=== PATIENT | male | born 1970 | race African-American/Black ===

== ENCOUNTER 2020-11-10 23:15 | Observation (INO) | payer OTHER ==
[2020-11-10] MEDS ORDERED: ONDANSETRON 4 MG/2 ML VIAL IVP STA (23:44)
[2020-11-10] MEDS ORDERED: SODIUM CHLORIDE 0.9% 500 ML 500 ML IV STA (23:44)
[2020-11-10] MEDS ORDERED: SODIUM CHLORIDE 0.9% 1,000 ML IV STA (23:44)
[2020-11-10] MEDS ORDERED: MORPHINE SULFATE 4 MG/ML SYRINGE IV STA (23:44)
[2020-11-10] MEDS ORDERED: AMPICILLIN-SULBACTAM 3 GM in SODIUM CHLORIDE 0.9% 100 ML IVPB STA (23:45)
[2020-11-10] MEDS ORDERED: VANCOMYCIN IV PER PHARMACY 1 EACH MISC MISCELLANE PRN (23:45)
[2020-11-10] MEDS ORDERED: KETOROLAC 15 MG/ML 1 ML VIAL IVP STA (23:45)
--- NOTE | 2020-11-10 23:55 | ED ---
Recheck HPI - General Chief Complaint: Skin/Abscess/Foreign Body Stated Complaint: Abscess Time Seen by Provider: 11/10/20 23:33 Source: patient, RN notes reviewed, old records reviewed Mode of arrival: ambulatory Limitations: no limitations - History of Present Illness Initial Comments: This is a 50-year-old male DF for evaluation. Patient has recent strong medical history, patient was seen at an outside facility for abscess of the groin area. Patient's abscesses continue to drain and patient does think is draining from other places besides from where it was initially opened. Severe pain in the area without fever but significant swelling and edema. Pain is again increasingly severe with still drainage. MD Complaint: wound re-check (left groin abscess) -: hour(s) Returns Today for: Called Because of Abnormal Lab/Test, persistent/worsening pain related to initial visit Symptoms Since Prior Visit: worsening pain Associated Symptoms: none Treatments Prior to Arrival: dressings - Related Data Allergies Allergy/AdvReac Type Severity Reaction Status Date / Time Sulfa (Sulfonamide Allergy Rash/Hives Verified 11/10/20 23:27 Antibiotics) Review of Systems ROS Statement: Those systems with pertinent positive or pertinent negative responses have been documented in the HPI. ROS Other: All systems not noted in ROS Statement are negative. Past Medical History Additional Past Medical History / Comment(s): chrons History of Any Multi-Drug Resistant Organisms: None Reported Additional Past Surgical History / Comment(s): colon surgery Past Psychological History: No Psychological Hx Reported Smoking Status: Never smoker Past Alcohol Use History: Occasional Past Drug Use History: None Reported General Exam General appearance: alert, in no apparent distress Head exam: Present: atraumatic, normocephalic, normal inspection Eye exam: Present: normal appearance, PERRL, EOMI. Absent: scleral icterus, conjunctival injection, periorbital swelling ENT exam: Present: normal exam, mucous membranes moist Neck exam: Present: normal inspection. Absent: tenderness, meningismus, lymphadenopathy Respiratory exam: Present: normal lung sounds bilaterally. Absent: respiratory distress, wheezes, rales, rhonchi, stridor Cardiovascular Exam: Present: regular rate, normal rhythm, normal heart sounds. Absent: systolic murmur, diastolic murmur, rubs, gallop, clicks GI/Abdominal exam: Present: soft, normal bowel sounds. Absent: distended, tenderness, guarding, rebound, rigid Extremities exam: Present: normal inspection, full ROM, normal capillary refill. Absent: tenderness, pedal edema, joint swelling, calf tenderness Back exam: Present: normal inspection Neurological exam: Present: alert, oriented X3, CN II-XII intact Psychiatric exam: Present: normal affect, normal mood Skin exam: Present: warm, dry, intact, normal color. Absent: rash Course Vital Signs 11/10/20 23:19 Temperature 99.5 F Pulse Rate 102 H Respiratory 18 Rate Blood Pressure 143/76 O2 Sat by Pulse 99 Oximetry - Reevaluation(s) Reevaluation #1: 11/11/20 01:08 medical record is reviewed Reevaluation #2: 11/11/20 01:11 Patient still having severe groin pain here in the ER Reevaluation #3: 11/11/20 01:11 Wound is bandages are removed no active drainage but significant surrounding cellulitis swelling and edema - Consultations Consultation #1: Spoke with sound who will admit this patient Medical Decision Making - Medical Decision Making 50 male DF for evaluation patient has persistent left groin abscess severe swelling surrounding swelling and erythema. No history of diabetes. Patient be admitted for surgical evaluation - Lab Data Result diagrams: 11/11/20 01:05 11/11/20 00:30 Lab Results 11/11/20 11/11/20 11/11/20 Range/Units 00:30 00:30 00:30 Sodium 136 L (137-145) mmol/L Potassium 4.1 (3.5-5.1) mmol/L Chloride 100 (98-107) mmol/L Carbon Dioxide 27 (22-30) mmol/L Anion Gap 9 mmol/L BUN 12 (9-20) mg/dL Creatinine 0.84 (0.66-1.25) mg/dL Est GFR (CKD-EPI)AfAm >90 (>60 ml/min/1.73 sqM) Est GFR (CKD-EPI)NonAf >90 (>60 ml/min/1.73 sqM) Glucose 346 H (74-99) mg/dL Plasma Lactic Acid Blaine 2.9 H* (0.7-2.0) mmol/L Calcium 9.0 (8.4-10.2) mg/dL Phosphorus 2.8 (2.5-4.5) mg/dL Magnesium 1.9 (1.6-2.3) mg/dL Total Bilirubin 0.4 (0.2-1.3) mg/dL AST 28 (17-59) U/L ALT 28 (4-49) U/L Alkaline Phosphatase 101 (38-126) U/L Creatine Kinase 114 (55-170) U/L Troponin I <0.012 (0.000-0.034) ng/mL Total Protein 6.6 (6.3-8.2) g/dL Albumin 3.5 (3.5-5.0) g/dL - EKG Data -: EKG Interpreted by Me (EKG shows sinus rhythm 94 VT 150 QRS 72 QTC 427) - Radiology Data Radiology results: report reviewed (CT abdomen and pelvis is positive for significant groin abscess), image reviewed Disposition Clinical Impression: Abscess, Groin abscess, Failure of outpatient treatment Disposition: ADMITTED IP TO THIS HOSP Condition: Fair Is patient prescribed a controlled substance at d/c from ED?: No
[2020-11-11] MEDS ORDERED: VANCOMYCIN 1,500 MG in SODIUM CHLORIDE 0.9% 250 ML IVPB ONE (00:30)
[2020-11-11] MEDS ORDERED: NALOXONE 0.4 MG/ML 1 ML VIAL IV PRN (01:04)
[2020-11-11] MEDS ORDERED: ONDANSETRON 4 MG/2 ML VIAL IVP PRN (01:04)
[2020-11-11] MEDS ORDERED: MORPHINE SULFATE 4 MG/ML SYRINGE IV PRN (01:04)
[2020-11-11 01:18] LABS: Basophils % (A) 1 %; Eosinophils # (A) 0.1 k/uL (0-0.7); Eosinophils % (A) 1 %; HCT 40.5 % (39.0-53.0); HGB 13.3 gm/dL (13.0-17.5); Lymphocytes # (A) 1.6 k/uL (1.0-4.8); Lymphocytes % (A) 25 %; MCH 28.6 pg (25.0-35.0); MCHC 32.9 g/dL (31.0-37.0); MCV 87.1 fL (80.0-100.0); Mean Platelet Volume 6.7; Monocytes # (A) 0.3 k/uL (0-1.0); Monocytes % (A) 5 %; Neutrophils # (A) 4.1 k/uL (1.3-7.7); Neutrophils % (A) 65 %; Platelet Count 311 k/uL (150-450); RBC 4.65 m/uL (4.30-5.90); RDW 12.8 % (11.5-15.5); WBC 6.4 k/uL (3.8-10.6)
--- NOTE | 2020-11-11 01:22 | CT ---
EXAMINATION TYPE: CT pelvis w con DATE OF EXAM: 11/11/2020 COMPARISON: None HISTORY: groin abscess. no prior on PACS. CT DLP: 2272 mGycm Automated exposure control for dose reduction was used. CONTRAST: Performed with IV Contrast, patient injected with 100ml mL of Isovue 300. Images were obtained from the iliac crests to the proximal femurs with IV contrast. The bladder distends smoothly. There is no free fluid in the pelvis. Delayed images show normal contr ast in the urinary bladder. The ureters are not dilated. I see no pelvic mass. There is no inguinal h ernia. There is no sign of a bowel obstruction. There is 3.7 cm umbilical hernia that contains fat. There is abnormal fat stranding and fluid collection in the left groin. This appears multiloculated a nd overall measures 8 x 5 cm. There is right side scrotal hydrocele. I see no sign of hydrocele on th e left side. There is small soft tissue air bubble near the skin surface on the superior aspect of th e complex mass. The hip joints are intact. The bony pelvis is intact. There is no hip dysplasia. IMPRESSION: Complex left groin mass consistent with an abscess. Surrounding fat stranding.
[2020-11-11 01:29] LABS: ALT 28 U/L (4-49); AST 28 U/L (17-59); African American GFR (CKD) >90 (>60 ml/min/1.73 sqM); Albumin 3.5 g/dL (3.5-5.0); Alkaline Phosphatase 101 U/L (38-126); Anion Gap 9 mmol/L; Blood Urea Nitrogen 12 mg/dL (9-20); Carbon Dioxide 27 mmol/L (22-30); Chloride 100 mmol/L (98-107); Creatine Kinase 114 U/L (55-170); Glucose 346 mg/dL (74-99); Magnesium 1.9 mg/dL (1.6-2.3); Non-African American GFR(CKD) >90 (>60 ml/min/1.73 sqM); Phosphorus 2.8 mg/dL (2.5-4.5); Potassium 4.1 mmol/L (3.5-5.1); Sodium 136 mmol/L (137-145); Total Bilirubin 0.4 mg/dL (0.2-1.3); Total Protein 6.6 g/dL (6.3-8.2)
--- NOTE | 2020-11-11 03:07 | P.HPIM ---
History of Present Illness H&P Date: 11/11/20 The patient is a 50-year-old male with a PMH of Crohn's disease who presented to the emergency room with a recently diagnosed groin abscess. The patient reports that he initially noticed the roughly a week ago at which time he went [facility]. He reports that they drained the area and did some gauze packing and sent him home with antibiotics. He reports however that soon after his symp toms gradually worsened and he had worsening pain and swelling of the area. He reports that today when he went to change his dressing, he noticed a significant amount of drainage from the area which prompted him to come to the emergency room. He reports occasional chills but denied having a fever at home despite checking his temperature consistently. At time of the interview, he reports that his pain had improved to a 1 out of 10, previously a 7 out of 10 of maximal intensity. He reports that his Crohn's disease is excellently controlled and that he does not take any medications for it and has no symptoms for the past 20 years. The patient was unable to recall the name of the antibiotic that he was prescribed. She also reports a prior history of abscesses or infections. He denied chest discomfort, shortness of breath, nausea, vomiting, abdominal pain, diarrhea. Denied headaches, weakness, numbness, tingling. In the emergency room, a pelvic CT revealed a complex left groin mass consistent with an abscess. EKG revealed sinus rhythm at [address]/T-wave changes noted as reviewed by me. Laboratory evaluation was remarkable for a lactic acid of 2.9, glucose 346, W BC count 6.4, and troponin less than 0.012. Review of systems: Pertinent positives and negatives as discussed in HPI, a complete review of systems was performed and all other systems are negative. Physical examination: General: non toxic, no distress, appears at stated age, overweight Derm: Diffuse suprapubic swelling with fluctuance and a draining ulcer, warm, dry Head: atraumatic, normocephalic, symmetric Eyes: EOMI, no lid lag, anicteric sclera, pupils equal round reactive to light ENT: Nose and ears atraumatic, no thrush, no pharyngeal erythema Neck: No thyromegaly, no cervical lymphadenopathy, trachea midline, supple Mouth: no lip lesion, mucus membranes moist Cardiovascular: S1S2 reg, no murmur, positive posterior tibial pulse bilateral, no edema, capillary refill less than 2 seconds Lungs: CTA bilateral, no rhonchi, no rales , no accessory muscle use Abdominal: soft, nontender to palpation, no guarding, no appreciable organomegaly, normal bowel sounds Ext: no gross muscle atrophy, muscle strength 5 out of 5 in all 4 extremities grossly, no contractures, Neuro: CN II-XI grossly intact, light touch intact all 4 extremities, finger to nose within normal limits, Psych: Alert, oriented, appropriate affect Assessment/plan Inguinal abscess, failed outpatient treatment -Continue with Unasyn and vancomycin -Follow up blood cultures -Pain control -Surgery consult -IV fluids Lactic acidosis -Monitor for resolution -Continue with IV fluids Hyperglycemia -Check A1c -Lispro insulin sliding scale and blood glucose monitoring DVT prophylaxis -Heparin subcu The patient is admitted with an anticipated less than 2 midnight stay for evaluation of abscess CODE STATUS: Full Code Discussed with: Patient Anticipated discharge date: 11/[address]: Home A total of 40 minutes was spent on the care of this complex patient more than 50% of the time was spent in counseling and care coordination. Past Medical History Additional Past Medical History / Comment(s): chrons History of Any Multi-Drug Resistant Organisms: None Reported Additional Past Surgical History / Comment(s): colon surgery Past Psychological History: No Psychological Hx Reported Smoking Status: Never smoker Past Alcohol Use History: Occasional Past Drug Use History: None Reported Medications and Allergies Allergies Allergy/AdvReac Type Severity Reaction Status Date / Time Sulfa (Sulfonamide Allergy Rash/Hives Verified 11/10/20 23:27 Antibiotics) Physical Exam Vitals: Vital Signs Temp Pulse Resp BP Pulse Ox 11/10/20 23:19 99.5 F 102 H 18 143/76 99 Intake and Output 11/10/20 11/10/20 11/11/20 14:59 22:59 06:59 Other: Weight 95.708 kg Results CBC & Chem 7: 11/11/20 01:05 11/11/20 00:30 Labs: Abnormal Lab Results - Last 24 Hours (Table) 11/11/20 11/11/20 Range/Units 00:30 00:30 Sodium 136 L (137-145) mmol/L Glucose 346 H (74-99) mg/dL Plasma Lactic Acid Blaine 2.9 H* (0.7-2.0) mmol/L
[2020-11-11 03:33] LABS: INR 1.1 (<1.2); Partial Thromboplastin Time 23.5 sec (22.0-30.0); Prothrombin Time 11.1 sec (9.0-12.0)
[2020-11-11] MEDS: HEPARIN SODIUM,PORCINE/PF 5,000 UNIT/0.5 ML SYRINGE SQ SCH ×2 (08:08→18:03)
[2020-11-11] MEDS: AMPICILLIN-SULBACTAM 3 GM in SODIUM CHLORIDE 0.9% 100 ML IVPB SCH ×2 (08:09→18:04)
[2020-11-11] MEDS: INSULIN ASPART (NovoLOG) 100 UNIT/ML VIAL SQ SCH ×4 (08:09→21:10)
[2020-11-11] MEDS: PANTOPRAZOLE 40 MG/10 ML VIAL IV SCH (08:09)
[2020-11-11] MEDS ORDERED: MORPHINE SULFATE 2 MG/ML SYRINGE IV PRN (08:19)
[2020-11-11 08:21] LABS: Glucose,Whole Blood 246 mg/dL (75-99)
[2020-11-11] MEDS ORDERED: SODIUM CHLORIDE 0.9% 1,000 ML IV SCH (08:30)
[2020-11-11] MEDS ORDERED: VANCOMYCIN 1,250 MG in SODIUM CHLORIDE 0.9% 250 ML IVPB SCH (10:00)
[2020-11-11 12:31] LABS: Glucose,Whole Blood 202 mg/dL (75-99)
--- NOTE | 2020-11-11 12:49 | P.HPADDEND ---
H&P Addendum H&P Addendum Date: 11/11/20 Patient seen and evaluated. Patient has complicated left lower abdominal abscess. Despite drainage at outside institution, patient still has persistent pain. Open surgical drainage described. Patient was agreeable with benefits and risks.
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
[2020-11-11] MEDS ORDERED: IV FLUID CONTINUATION 900 ML IV ONE (13:00)
[2020-11-11 13:18] LABS: Glucose,Whole Blood 234 mg/dL (75-99)
[2020-11-11] MEDS ORDERED: INSULIN ASPART (NovoLOG) 100 UNIT/ML VIAL SQ ONE (13:22)
[2020-11-11] MEDS ORDERED: fentaNYL (PF) 50 MCG/ML 2 ML AMP ONE (14:05)
[2020-11-11] MEDS ORDERED: LIDOCAINE 1% INJ 10MG/ML (20 ML MDV) ONE (14:05)
[2020-11-11] MEDS ORDERED: MIDAZOLAM 2 MG/2 ML VIAL ONE (14:05)
[2020-11-11] MEDS ORDERED: SUCCINYLCHOLINE CHLORIDE 100 MG/5 ML SYR IV ONE (14:05)
[2020-11-11] MEDS ORDERED: PROPOFOL 10 MG/ML 20 ML VIAL IV ONE (14:05)
[2020-11-11] MEDS ORDERED: BUPIVACAINE (PF) 0.25% 30 ML VIAL SQ ONE (14:25)
--- NOTE | 2020-11-11 15:33 | P.OP ---
Date of Procedure: 11/11/20 Description of Procedure: SURGEON: MORENITA PERERA MD FLASH RANGING CREWMEMBER: NONE. PREOPERATIVE DIAGNOSES: 1. Complex abdominal, left groin abscess 2. Failed outpatient management left groin abscess 3. History of Crohn's disease 5. Hyperglycemia, controlled 6. Abnormal computed tomography scan 8 x 5 cm left groin abscess 7. Cellulitis, left groin abscess POSTOPERATIVE DIAGNOSES: 1. Complex abdominal, left groin abscess, deep subcutaneous 2. Failed outpatient management left groin abscess 3. History of Crohn's disease 5. Hyperglycemia, controlled 6. Abnormal computed tomography scan 8 x 5 cm left groin abscess OPERATION: 1. Excision of benign lesion into subcutaneous tissue 7 x 2 cm left groin. 2. Open drainage of complex deep subcutaneous left groin abscess/abdominal wall abscess, 8 x 5 cm 2. Mechanical debridement using 3 L normal saline of pulse lavage of complex left groin abscess, 8 x 5 cm 3. Placement of [place] drain ANESTHESIA: Gen. with local anesthetic ESTIMATED BLOOD LOSS: 20 mL. SPECIMENS REMOVED: 1. Aerobic, anaerobic culture of the complex left groin abscess 2. Benign skin lesion left groin COMPLICATIONS: None. Condition: stable Disposition: floor Operative Findings: 1. Severe induration and erythema of the pubis, left groin. 2. Pulse lavage 3 L normal saline of abdominal wall pocket performed for mechanical debridement 3. Drain placed in evacuated abscess pocket INDICATIONS: The patient patient is a 50-year-old male who presents with lower abdominal suprapubic swelling and severe tenderness along the left groin. CT demonstrated complex left groin abscess. The patient was started on vancomycin. Given the complexity and size the abscess, open surgical intervention was described. Benefits and risks including bleeding, infection, wound dehiscence, cosmetic deformity were reviewed. Informed consent was obtained. DESCRIPTION OF PROCEDURE: Patient was brought into the operating room and laid in supine position. After general anesthetic, the abdomen and thigh were prepped and draped in a standard sterile fashion. Attention was then brought to the complex left groin cellulitis with abscess. Using a #15 blade an elliptical 7 cm x 2 cm transverse incision, benign skin lesion was excised into the subcutaneous tissue along the left groin. The wound was probed with disruption of loculations. Aerobic and anaerobic cultures of deep tissue cultures were obtained. The pocket was flushed using dilute hydrogen peroxide. A pulse lavage of 3 L normal saline for mechanical debridement to the fascia, the deep subcutaneous pocket was performed. A quarter-inch Jovita drain was cut to size and placed in the depth of the wound for drainage. A drainage stitch 2-0 nylon was placed. The open wound was loosely closed using stainless skin nydia. Local anesthetic was placed. Additional dressings: 4 x 4 fluffs, ABDs, 6 inch Medipore tape was placed after the skin was cleansed. The patient was awoken from anesthesia. All sponge and instrument counts were verified correct by traffic survey technician. The patient was transferred to postanesthesia care unit in stable condition.
[2020-11-11 15:52] LABS: Glucose,Whole Blood 169 mg/dL (75-99)
[2020-11-11 16:28] LABS: Hemoglobin A1C 9.4 % (4.0-6.0)
[2020-11-11 17:26] LABS: Glucose,Whole Blood 169 mg/dL (75-99)
[2020-11-11 20:59] LABS: Glucose,Whole Blood 224 mg/dL (75-99)
[2020-11-12] MEDS: HEPARIN SODIUM,PORCINE/PF 5,000 UNIT/0.5 ML SYRINGE SQ SCH ×3 (00:38→17:07)
[2020-11-12] MEDS: AMPICILLIN-SULBACTAM 3 GM in SODIUM CHLORIDE 0.9% 100 ML IVPB SCH ×3 (00:39→17:06)
[2020-11-12 06:59] LABS: Glucose,Whole Blood 140 mg/dL (75-99)
[2020-11-12] MEDS: INSULIN ASPART (NovoLOG) 100 UNIT/ML VIAL SQ SCH ×4 (08:00→20:37)
[2020-11-12] MEDS ORDERED: VANCOMYCIN TROUGH DUE 1 EACH MISC MISCELLANE ONE (09:00)
[2020-11-12 09:05] LABS: Basophils % (A) 0 %; Eosinophils # (A) 0.2 k/uL (0-0.7); Eosinophils % (A) 5 %; HCT 40.2 % (39.0-53.0); HGB 13.8 gm/dL (13.0-17.5); Lymphocytes # (A) 1.8 k/uL (1.0-4.8); Lymphocytes % (A) 34 %; MCH 29.8 pg (25.0-35.0); MCHC 34.4 g/dL (31.0-37.0); MCV 86.6 fL (80.0-100.0); Mean Platelet Volume 6.5; Monocytes # (A) 0.3 k/uL (0-1.0); Monocytes % (A) 6 %; Neutrophils # (A) 2.9 k/uL (1.3-7.7); Neutrophils % (A) 53 %; Platelet Count 349 k/uL (150-450); RBC 4.63 m/uL (4.30-5.90); RDW 12.7 % (11.5-15.5); WBC 5.4 k/uL (3.8-10.6)
[2020-11-12 09:07] LABS: ALT 27 U/L (4-49); AST 35 U/L (17-59); African American GFR (CKD) >90 (>60 ml/min/1.73 sqM); Albumin 3.1 g/dL (3.5-5.0); Alkaline Phosphatase 79 U/L (38-126); Anion Gap 7 mmol/L; Blood Urea Nitrogen 8 mg/dL (9-20); Calcium 8.5 mg/dL (8.4-10.2); Carbon Dioxide 25 mmol/L (22-30); Chloride 106 mmol/L (98-107); Globulin 3.2 g/dL; Glucose 247 mg/dL (74-99); Non-African American GFR(CKD) >90 (>60 ml/min/1.73 sqM); Phosphorus 2.5 mg/dL (2.5-4.5); Sodium 138 mmol/L (137-145); Total Bilirubin 0.6 mg/dL (0.2-1.3); Total Protein 6.3 g/dL (6.3-8.2)
[2020-11-12] MEDS: PANTOPRAZOLE 40 MG/10 ML VIAL IV SCH (09:22)
[2020-11-12 10:49] VITALS: BMI 29.4
[2020-11-12] MEDS: VANCOMYCIN 1,250 MG in SODIUM CHLORIDE 0.9% 250 ML IVPB SCH ×2 (11:07→20:26)
[2020-11-12] MEDS ORDERED: ACETAMINOPHEN TAB 500 MG TAB PO PRN (11:16)
--- NOTE | 2020-11-12 11:22 | P.PN ---
Subjective Progress Note Date: 11/12/20 CHIEF COMPLAINT: Left groin abscess HISTORY OF PRESENT ILLNESS: Patient is status post Excision of benign lesion into subcutaneous tissue 7 x 2 cm left groin, open drainage of complex deep subcutaneous left groin abscess/abdominal wall abscess, 8 x 5 cm, Mechanical debridement using 3 L normal saline of pulse lavage of complex left groin abscess, 8 x 5 cm and Placement of [place] drain. Patient lying in bed comfortably. He reports that his pain is controlled. He denies any nausea or vomiting. He tolerated regular diet. He is having flatus. Denies any bowel movement. Deep cultures from surgery are pending. Infectious disease consult for antibiotic recommendations. Patient is afebrile. His A1c is elevated at 9.4. WBC is 5.4 hemoglobin 13.8 creatinine 0.67 glucose 246 PHYSICAL EXAM: VITAL SIGNS: Reviewed GENERAL: Well-developed in no acute distress. HEENT: No sclera icterus. Extraocular movements grossly intact. Moist buccal mucosa. Head is atraumatic, normocephalic. Hears conversational speech. No nasal drainage. NECK: Supple without lymphadenopathy. CHEST: Non-labored respirations and equal bilateral excursions. CARDIOVASCULAR: Palpable 2+ radial pulses. ABDOMEN: Soft. Nondistended. Incisional dressing clean dry and intact MUSCULOSKELETAL: No clubbing or cyanosis. NEUROLOGIC: No focal or lateralizing signs. Cranial nerves II through XII grossly intact. PSYCH: Appropriate affect. Alert and oriented to person, place and time. SKIN: Well perfused. Good skin turgor. ASSESSMENT: 1. Complex abdominal, left groin abscess, deep subcutaneous 2. Failed outpatient management left groin abscess 3. History of Crohn's disease 5. New diabetic with Hyperglycemia 6. Abnormal computed tomography scan 8 x 5 cm left groin abscess PLAN: -Consult infectious disease for antibiotic recommendations -Continue current IV antibiotics -Medical service for diabetes management -Encourage patient to ambulate -Add Tylenol as needed for pain Physician Dairy Technician note has been reviewed by physician. Signing provider agrees with the documented findings, assessment, and plan of care. Objective - Vital Signs Vital signs: Vital Signs Temp 97.7 F 11/12/20 07:00 Pulse 72 11/12/20 07:00 Resp 17 11/12/20 07:00 BP 141/90 11/12/20 07:00 Pulse Ox 99 11/12/20 07:00 Intake & Output 11/11/20 11/12/20 11/12/20 18:59 06:59 18:59 Intake Total 1000 118 Output Total 820 1700 Balance 180 -1700 118 Weight 95.708 kg Intake: IV 800 Oral 200 118 Output: Urine 800 1700 Estimated Blood Loss 20 Other: Voiding Method Urinal Urinal - Labs CBC & Chem 7: 11/12/20 08:32 11/12/20 08:32 Labs: Abnormal Lab Results - Last 24 Hours (Table) 11/11/20 11/11/20 11/11/20 Range/Units 03:43 12:30 13:15 BUN (9-20) mg/dL Glucose (74-99) mg/dL POC Glucose (mg/dL) 202 H 234 H (75-99) mg/dL Hemoglobin A1c 9.4 H (4.0-6.0) % Albumin (3.5-5.0) g/dL 11/11/20 11/11/20 11/11/20 Range/Units 15:50 17:24 20:58 BUN (9-20) mg/dL Glucose (74-99) mg/dL POC Glucose (mg/dL) 169 H 169 H 224 H (75-99) mg/dL Hemoglobin A1c (4.0-6.0) % Albumin (3.5-5.0) g/dL 11/12/20 11/12/20 Range/Units 06:57 08:32 BUN 8 L (9-20) mg/dL Glucose 247 H (74-99) mg/dL POC Glucose (mg/dL) 140 H (75-99) mg/dL Hemoglobin A1c (4.0-6.0) % Albumin 3.1 L (3.5-5.0) g/dL Microbiology - Last 24 Hours (Table) 11/11/20 14:40 Gram Stain - Preliminary Groin Wound Culture - Preliminary 11/11/20 14:40 Gram Stain - Preliminary Groin Wound Culture - Preliminary 11/11/20 00:45 Blood Culture - Preliminary Blood No Growth after 24 hours 11/11/20 00:30 Blood Culture - Preliminary Blood No Growth after 24 hours 11/11/20 14:40 Anaerobic Culture - Preliminary Groin 11/11/20 14:40 Anaerobic Culture - Preliminary Groin
[2020-11-12 11:49] LABS: Glucose,Whole Blood 219 mg/dL (75-99)
[2020-11-12 16:55] LABS: Glucose,Whole Blood 185 mg/dL (75-99)
--- NOTE | 2020-11-12 16:56 | P.PN ---
Subjective Progress Note Date: 11/12/20 Patient is doing well today. No acute events overnight. Objective - Vital Signs Vital signs: Vital Signs Temp 97.8 F 11/12/20 14:27 Pulse 88 11/12/20 14:27 Resp 16 11/12/20 14:27 BP 141/91 11/12/20 14:27 Pulse Ox 97 11/12/20 14:27 Intake & Output 11/11/20 11/12/20 11/12/20 18:59 06:59 18:59 Intake Total 1000 354 Output Total 820 1700 1375 Balance 180 -1700 -1021 Weight 95.708 kg Intake: IV 800 Oral 200 354 Output: Urine 800 1700 1375 Estimated Blood Loss 20 Other: Voiding Method Urinal Urinal Toilet - Exam General: The patient is awake and alert, in no distress Eye: there is normal conjunctiva bilaterally. Neck: The neck is supple, there is no JVD. Cardiovascular: Normal S1-S2, no S3-S4, no murmurs. Respiratory: Lungs clear to auscultation bilaterally Gastrointestinal: Abdomen is soft, nontender Musculoskeletal: There is no pedal edema. Neurological:. Speech is normal. Skin: Skin is warm and dry - Labs CBC & Chem 7: 11/12/20 08:32 11/12/20 08:32 Labs: Abnormal Lab Results - Last 24 Hours (Table) 11/11/20 11/11/20 11/12/20 Range/Units 17:24 20:58 06:57 BUN (9-20) mg/dL Glucose (74-99) mg/dL POC Glucose (mg/dL) 169 H 224 H 140 H (75-99) mg/dL Albumin (3.5-5.0) g/dL 11/12/20 11/12/20 Range/Units 08:32 11:47 BUN 8 L (9-20) mg/dL Glucose 247 H (74-99) mg/dL POC Glucose (mg/dL) 219 H (75-99) mg/dL Albumin 3.1 L (3.5-5.0) g/dL Microbiology - Last 24 Hours (Table) 11/11/20 14:40 Gram Stain - Preliminary Groin Wound Culture - Preliminary 11/11/20 14:40 Gram Stain - Preliminary Groin Wound Culture - Preliminary 11/11/20 00:45 Blood Culture - Preliminary Blood No Growth after 24 hours 11/11/20 00:30 Blood Culture - Preliminary Blood No Growth after 24 hours 11/11/20 14:40 Anaerobic Culture - Preliminary Groin 11/11/20 14:40 Anaerobic Culture - Preliminary Groin Assessment and Plan Assessment: This is a 50-year-old male with past medical history noted below who presented to the emergency room with worsening swelling and discomfort in the groin area. Patient was evaluated in the ER and admitted to the hospital for further management of his medical problems noted below 1. Complex abdominal/left groin abscess, failed outpatient management status post debridement and placement of [place] drain. Currently on broad-spectrum antibiotic with vancomycin and Unasyn. Awaiting culture results. 2. Type 2 diabetes, new onset. Not well controlled. A1c 9.4. Insulin sliding scale insulin. I would transition to oral medications upon discharge 3. History of Crohn's disease Today, I reviewed his medication list and lab work results. Continue broad spectrum antibiotic. Repeat lab work in the morning. Anticipate discharge home tomorrow.
[2020-11-12] MEDS: INSULIN DETEMIR (LEVEMIR) 100 UNIT/ML SYR SQ SCH (17:49)
[2020-11-12 20:19] LABS: Glucose,Whole Blood 234 mg/dL (75-99)
--- NOTE | 2020-11-12 22:44 | P.CONS ---
History of Present Illness - Reason for Consult Consult date: 11/12/20 Left groin abscess Requesting physician: Nicolle Yan - Chief Complaint Left groin pain swelling x 2 days - History of Present Illness Patient is a 50-year-old -[place] male presenting to the ER 2 days ago for evaluation of painful swelling to the left groin area apparently the patient did develop an abscess to the groin area which was drained at [facility] and the patient subsequent discharged home with antibiotic however the patient continued to have increasing pain and swelling to the groin area and any change in dressing on the day of presentation to hospital patient noted significant amount of purulent drainage which concerned him and he presented to the hospital patient did have some chills and the patient had did have a low- grade fever on presentation to the hospital patient did have a normal white count kidney function and liver enzymes were normal blood cultures obtained currently pending patient did have a CT of the pelvis did shows complex left groin mass consistent with an abscess with surrounding fat stranding patient was taken to the OR yesterday afternoon and the patient is s/p drainage of the left groin abscess culture has been obtained which are currently pending patient is currently being treated with Unasyn and vancomycin infectious disease was consulted for further management of antibiotic therapy. Review of Systems Positive point has been mentioned in the HPI rest of the systems are negative Past Medical History Additional Past Medical History / Comment(s): chrons History of Any Multi-Drug Resistant Organisms: None Reported Additional Past Surgical History / Comment(s): colon surgery Past Psychological History: No Psychological Hx Reported Smoking Status: Never smoker Past Alcohol Use History: Occasional Past Drug Use History: None Reported Medications and Allergies Home Medications Medication Instructions Recorded Confirmed Type Acetaminophen Tab [Tylenol Tab] 1,000 mg PO Q6HR PRN 11/11/20 11/11/20 History Amoxic-Pot Clav 875-125Mg 1 tab PO Q12HR 11/11/20 11/11/20 History [Augmentin 875-125] Allergies Allergy/AdvReac Type Severity Reaction Status Date / Time Sulfa (Sulfonamide Allergy Rash/Hives Verified 11/11/20 13:05 Antibiotics) Physical Exam Vitals: Vital Signs Temp Pulse Pulse Resp BP Pulse Ox 11/12/20 07:00 97.7 F 72 17 141/90 99 11/12/20 01:45 97.7 F 80 16 141/86 96 11/11/20 19:23 97.8 F 88 18 138/86 97 11/11/20 16:00 78 16 110/70 98 11/11/20 15:45 77 16 109/68 98 11/11/20 15:30 80 16 112/67 99 11/11/20 15:15 84 16 107/66 98 11/11/20 14:59 98.1 F 87 16 116/74 97 11/11/20 13:01 99.0 F 85 18 133/84 99 Intake and Output 11/11/20 11/12/20 11/12/20 22:59 06:59 14:59 Intake Total 300 118 Output Total 1999 500 Balance -1700 -500 118 Intake: IV 100 Oral 200 118 Output: Urine 1999 500 Other: Voiding Method Urinal Toilet Urinal Weight 95.708 kg GENERAL DESCRIPTION: Middle-aged male lying in bed, no distress. No tachypnea or accessory muscle of respiration use. HEENT: Shows Pallor , no scleral icterus. Oral mucous membrane is dry. No phar yngeal erythema or thrush NECK: Trachea central, no thyromegaly. LUNGS: Unlabored breathing. Clear to auscultation anteriorly. No wheeze or crackle. HEART: S1, S2, regular rate and rhythm. No loud murmur ABDOMEN: Soft, no tenderness , guarding or rigidity, no organomegaly Left groin is currently dressed no drainage of the dressing EXTREMITIES: No edema of feet. SKIN: No rash, no masses palpable. NEUROLOGICAL: The patient is awake, alert, oriented x3, mood and affect normal. Results CBC & Chem 7: 11/12/20 08:32 11/12/20 08:32 Labs: Abnormal Lab Results - Last 24 Hours (Table) 11/11/20 11/11/20 11/11/20 Range/Units 03:43 12:30 13:15 BUN (9-20) mg/dL Glucose (74-99) mg/dL POC Glucose (mg/dL) 202 H 234 H (75-99) mg/dL Hemoglobin A1c 9.4 H (4.0-6.0) % Albumin (3.5-5.0) g/dL 11/11/20 11/11/20 11/11/20 Range/Units 15:50 17:24 20:58 BUN (9-20) mg/dL Glucose (74-99) mg/dL POC Glucose (mg/dL) 169 H 169 H 224 H (75-99) mg/dL Hemoglobin A1c (4.0-6.0) % Albumin (3.5-5.0) g/dL 11/12/20 11/12/20 11/12/20 Range/Units 06:57 08:32 11:47 BUN 8 L (9-20) mg/dL Glucose 247 H (74-99) mg/dL POC Glucose (mg/dL) 140 H 219 H (75-99) mg/dL Hemoglobin A1c (4.0-6.0) % Albumin 3.1 L (3.5-5.0) g/dL Microbiology - Last 24 Hours (Table) 11/11/20 14:40 Gram Stain - Preliminary Groin Wound Culture - Preliminary 11/11/20 14:40 Gram Stain - Preliminary Groin Wound Culture - Preliminary 11/11/20 00:45 Blood Culture - Preliminary Blood No Growth after 24 hours 11/11/20 00:30 Blood Culture - Preliminary Blood No Growth after 24 hours 11/11/20 14:40 Anaerobic Culture - Preliminary Groin 11/11/20 14:40 Anaerobic Culture - Preliminary Groin Assessment and Plan Assessment: patient with left groin abscess in this patient who is status post surgical drainage in this patient has been in her the hospital concerning for possible resistant gram-positive as well as gram-negative pathogen (1) Groin abscess Current Visit: Yes Status: Acute Code(s): L02.214 - CUTANEOUS ABSCESS OF GROIN SNOMED Code(s): 19942190 Plan: 1-vancomycin pharmacy to dose her with a target trough of 15 while watching her kidney function and V[place] trough closely. 2-Unasyn 3 g every 6 hours We will follow on clinical condition and cultures to further adjust medication if needed Thank you for this consultation we will follow the patient along with you Time with Patient: Greater than 30
[2020-11-13] MEDS: AMPICILLIN-SULBACTAM 3 GM in SODIUM CHLORIDE 0.9% 100 ML IVPB SCH ×2 (01:00→08:07)
[2020-11-13] MEDS: VANCOMYCIN 1,250 MG in SODIUM CHLORIDE 0.9% 250 ML IVPB SCH ×2 (03:00→10:30)
[2020-11-13 06:58] VITALS: BP 158/99; PULSE 74; RESP 20; TEMP 97.7
--- NOTE | 2020-11-13 06:59 | P.PN ---
Progress Note - Text Progress Note Date: 11/12/20 Patient reports complicated surgical with Crohn's disease and not on any maintenance medication or has management with community development worker. No pain along the left groin. He also reports right inguinal hydrocele and symptomatic. Consultation made per patient request.
[2020-11-13 07:02] LABS: Glucose,Whole Blood 133 mg/dL (75-99)
[2020-11-13] MEDS: HEPARIN SODIUM,PORCINE/PF 5,000 UNIT/0.5 ML SYRINGE SQ SCH ×2 (08:07)
[2020-11-13] MEDS: INSULIN ASPART (NovoLOG) 100 UNIT/ML VIAL SQ SCH ×2 (08:07→13:03)
[2020-11-13] MEDS: PANTOPRAZOLE 40 MG/10 ML VIAL IV SCH (08:07)
[2020-11-13] MEDS: INSULIN DETEMIR (LEVEMIR) 100 UNIT/ML SYR SQ SCH (08:07)
--- NOTE | 2020-11-13 09:05 | P.GSCN ---
History of Present Illness Consult date: 11/13/20 History of present illness: Pleasant 50-year-old gentleman in the hospital with a left groin abscess incompletely treated at an outside institution. He has had surgery to correct it here. During the evaluation he was found to have a fluid collection in his right hemiscrotum and for this reason we were consult. Symptomatically the patient is not having any symptoms. He is noticed this fluid collection for about a year. It does not seem to be bothering him. He has not had any testicular trauma or urine infections. Her seen a urinary tract DrAfsaneh for this before Review of Systems All systems: negative - Constitutional Denies fever, Denies weight loss - EENT Eyes: denies blurred vision Ears, nose, mouth and throat: Denies dysphagia - Cardiovascular Denies chest pain, Denies shortness of breath - Respiratory Denies cough, Denies 7 - Gastrointestinal Reports as per HPI - Genitourinary Denies dysuria, Denies hematuria - Integumentary Denies rash, Denies unusual bruising - Neurological Denies headaches, Denies syncope - Hematologic/Lymphatic Denies easy bleeding, Denies easy bruising Past Medical History Additional Past Medical History / Comment(s): chrons History of Any Multi-Drug Resistant Organisms: None Reported Additional Past Surgical History / Comment(s): colon surgery Past Psychological History: No Psychological Hx Reported Smoking Status: Never smoker Past Alcohol Use History: Occasional Past Drug Use History: None Reported Medications and Allergies Home Medications Medication Instructions Recorded Confirmed Type Acetaminophen Tab [Tylenol Tab] 1,000 mg PO Q6HR PRN 11/11/20 11/11/20 History Amoxic-Pot Clav 875-125Mg 1 tab PO Q12HR 11/11/20 11/11/20 History [Augmentin 875-125] Allergies Allergy/AdvReac Type Severity Reaction Status Date / Time Sulfa (Sulfonamide Allergy Rash/Hives Verified 11/11/20 13:05 Antibiotics) Surgical - Exam Vital Signs Temp Pulse Resp BP Pulse Ox 99.5 F 102 H 18 143/76 99 11/10/20 23:19 11/10/20 23:19 11/10/20 23:19 11/10/20 23:19 11/10/20 23:19 - General well developed, well nourished, no distress - Eyes PERRL - ENT no hearing loss - Neck trachea midline - Respiratory normal expansion, normal respiratory effort - Cardiovascular Rhythm: regular - Abdomen Abdomen: soft, non tender - Genitourinary Left groin dressing, right fluid collection anterior scrotum consistent with hydrocele or spermatocele. - Neurologic normal coordination - Musculoskeletal normal posture - Psychiatric oriented to time, oriented to person, oriented to place, speech is normal, memory intact Results - Labs 11/12/20 08:32 11/12/20 08:32 Abnormal Lab Results - Last 24 Hours (Table) 11/12/20 11/12/20 11/12/20 Range/Units 08:32 11:47 16:54 BUN 8 L (9-20) mg/dL Glucose 247 H (74-99) mg/dL POC Glucose (mg/dL) 219 H 185 H (75-99) mg/dL Albumin 3.1 L (3.5-5.0) g/dL 11/12/20 11/13/20 Range/Units 20:16 06:46 BUN (9-20) mg/dL Glucose (74-99) mg/dL POC Glucose (mg/dL) 234 H 133 H (75-99) mg/dL Albumin (3.5-5.0) g/dL Microbiology - Last 24 Hours (Table) 11/11/20 00:45 Blood Culture - Preliminary Blood No Growth after 48 hours 11/11/20 00:30 Blood Culture - Preliminary Blood No Growth after 48 hours 11/11/20 14:40 Gram Stain - Preliminary Groin Wound Culture - Preliminary 11/11/20 14:40 Gram Stain - Preliminary Groin Wound Culture - Preliminary Diabetes panel 11/12/20 Range/Units 08:32 Sodium 138 (137-145) mmol/L Potassium 4.0 (3.5-5.1) mmol/L Chloride 106 (98-107) mmol/L Carbon Dioxide 25 (22-30) mmol/L BUN 8 L (9-20) mg/dL Creatinine 0.67 (0.66-1.25) mg/dL Glucose 247 H (74-99) mg/dL Calcium 8.5 (8.4-10.2) mg/dL AST 35 (17-59) U/L ALT 27 (4-49) U/L Alkaline Phosphatase 79 (38-126) U/L Total Protein 6.3 (6.3-8.2) g/dL Albumin 3.1 L (3.5-5.0) g/dL Calcium panel 11/12/20 Range/Units 08:32 Calcium 8.5 (8.4-10.2) mg/dL Phosphorus 2.5 (2.5-4.5) mg/dL Albumin 3.1 L (3.5-5.0) g/dL Pituitary panel 11/12/20 Range/Units 08:32 Sodium 138 (137-145) mmol/L Potassium 4.0 (3.5-5.1) mmol/L Chloride 106 (98-107) mmol/L Carbon Dioxide 25 (22-30) mmol/L BUN 8 L (9-20) mg/dL Creatinine 0.67 (0.66-1.25) mg/dL Glucose 247 H (74-99) mg/dL Calcium 8.5 (8.4-10.2) mg/dL Adrenal panel 11/12/20 Range/Units 08:32 Sodium 138 (137-145) mmol/L Potassium 4.0 (3.5-5.1) mmol/L Chloride 106 (98-107) mmol/L Carbon Dioxide 25 (22-30) mmol/L BUN 8 L (9-20) mg/dL Creatinine 0.67 (0.66-1.25) mg/dL Glucose 247 H (74-99) mg/dL Calcium 8.5 (8.4-10.2) mg/dL Total Bilirubin 0.6 (0.2-1.3) mg/dL AST 35 (17-59) U/L ALT 27 (4-49) U/L Alkaline Phosphatase 79 (38-126) U/L Total Protein 6.3 (6.3-8.2) g/dL Albumin 3.1 L (3.5-5.0) g/dL - Imaging CT scan - pelvis: report reviewed, image reviewed Assessment and Plan Assessment: Impression: Right hydrocele/spermatocele. Recommendations: Surgical treatment of this is elective. This is been discussed at length with the patient to. He'll let me know if he wishes to have anything done after recuperates from the present illness.
[2020-11-13 11:52] LABS: Glucose,Whole Blood 180 mg/dL (75-99)
--- NOTE | 2020-11-13 13:14 | P.PN ---
Subjective Progress Note Date: 11/13/20 CHIEF COMPLAINT: Left groin abscess HISTORY OF PRESENT ILLNESS: Patient is status post Excision of benign lesion into subcutaneous tissue 7 x 2 cm left groin, open drainage of complex deep subcutaneous left groin abscess/abdominal wall abscess, 8 x 5 cm, Mechanical debridement using 3 L normal saline of pulse lavage of complex left groin abscess, 8 x 5 cm and Placement of [place] drain. Patient lying in bed comfortably. He reports that his pain is controlled. He denies any nausea or vomiting. He tolerated regular diet. He is having flatus. Patient is afebrile. His A1c is elevated at 9.4. Blood sugar 180 culture results showing presumptive MRSA PHYSICAL EXAM: VITAL SIGNS: Reviewed GENERAL: Well-developed in no acute distress. HEENT: No sclera icterus. Extraocular movements grossly intact. Moist buccal mucosa. Head is atraumatic, normocephalic. Hears conversational speech. No nasal drainage. NECK: Supple without lymphadenopathy. CHEST: Non-labored respirations and equal bilateral excursions. CARDIOVASCULAR: Palpable 2+ radial pulses. ABDOMEN: Soft. Nondistended. Incisional dressing clean dry and intact MUSCULOSKELETAL: No clubbing or cyanosis. NEUROLOGIC: No focal or lateralizing signs. Cranial nerves II through XII grossly intact. PSYCH: Appropriate affect. Alert and oriented to person, place and time. SKIN: Well perfused. Good skin turgor. ASSESSMENT: 1. Complex abdominal, left groin abscess, deep subcutaneous 2. Failed outpatient management left groin abscess 3. History of Crohn's disease 5. New diabetic with Hyperglycemia 6. Abnormal computed tomography scan 8 x 5 cm left groin abscess PLAN: -Patient is stable from surgical standpoint for discharge. -Discharge antibiotics per ID -Patient can shower recommend covering his incision with Saran wrap for showers Physician Senior Design Engineering Specialist note has been reviewed by physician. Signing provider agrees with the documented findings, assessment, and plan of care. Objective - Vital Signs Vital signs: Vital Signs Temp 97.7 F 11/13/20 06:43 Pulse 74 11/13/20 06:43 Resp 20 11/13/20 08:54 BP 158/99 11/13/20 06:43 Pulse Ox 100 11/13/20 06:43 Intake & Output 11/12/20 11/13/20 11/13/20 18:59 06:59 18:59 Intake Total 354 1400 480 Output Total 1375 1700 400 Balance -1021 -300 80 Weight 95.708 kg Intake: Intake, IV Titration 600 Amount Ampicillin-Sulbactam 3 gm 100 In Sodium Chloride 0.9% 100 ml @ 200 mls/hr IVPB Q8H [facility] Rx#:[id number] Vancomycin 1,250 mg In 500 Sodium Chloride 0.9% 250 ml @ 125 mls/hr IVPB Q8HR @0200,1000,1800 [facility] Rx#: [id number] Oral 354 800 480 Output: Urine 1375 1700 400 Other: Voiding Method Toilet # Voids 1 # Bowel Movements 0 - Labs CBC & Chem 7: 11/12/20 08:32 11/12/20 08:32 Labs: Abnormal Lab Results - Last 24 Hours (Table) 11/12/20 11/12/20 11/13/20 Range/Units 16:54 20:16 06:46 POC Glucose (mg/dL) 185 H 234 H 133 H (75-99) mg/dL 11/13/20 Range/Units 11:48 POC Glucose (mg/dL) 180 H (75-99) mg/dL Microbiology - Last 24 Hours (Table) 11/11/20 14:40 Anaerobic Culture - Preliminary Groin 11/11/20 14:40 Anaerobic Culture - Preliminary Groin 11/11/20 14:40 Gram Stain - Preliminary Groin Wound Culture - Preliminary Presumptive MRSA 11/11/20 14:40 Gram Stain - Preliminary Groin Wound Culture - Preliminary Presumptive MRSA 11/11/20 00:45 Blood Culture - Preliminary Blood No Growth after 48 hours 11/11/20 00:30 Blood Culture - Preliminary Blood No Growth after 48 hours
--- NOTE | 2020-11-13 13:47 | P.DS ---
Providers Date of admission: 11/11/20 01:04 Expected date of discharge: 11/13/20 Attending physician: Juan Dowling MD Consults: 11/11/20 01:04 Consult Physician Routine Consulting Provider: Nicolle Yan Consult Reason/Comments: abscess Do you want consulting provider notified?: Yes 11/12/20 09:48 Consult Physician Routine Consulting Provider: Osmar Pineda Consult Reason/Comments: left groin abscess Do you want consulting provider notified?: Yes 11/12/20 21:55 Consult Physician Routine Consulting Provider: Rock Rojas Consult Reason/Comments: Right hydrocele Do you want consulting provider notified?: Yes, Notify in am 11/12/20 21:56 Consult Physician Routine Consulting Provider: Lou Maldonado Consult Reason/Comments: Crohns disease, untreated Do you want consulting provider notified?: Yes, Notify in am Primary care physician: Yana Solorzano [facility] Course: This is a 50-year-old male with past medical history noted below who presented to the emergency room with worsening swelling and discomfort in the groin area. Patient was evaluated in the ER and admitted to the hospital for further management of his medical problems noted below 1. Complex abdominal/left groin abscess, failed outpatient management status post debridement and placement of [place] drain. Started on broad-spectrum antibiotic with vancomycin and Unasyn. Culture grew MRSA. We will finish antibiotic course with clindamycin. Patient has sulfa ALLERGY. 2. Type 2 diabetes, new onset. Not well controlled. A1c 9.4. Patient was started on metformin 500 mg twice daily and glipizide 5 mg twice daily 3. History of Crohn's disease: Follow up with GI as directed Patient was seen, evaluated, and examined by me on the day of discharge. He is doing fairly well. The drain will remain in place until follow-up with Gen. surgery in the office. Had a prolonged discussion with the patient regarding the importance of checking his blood glucose at home and following up with a new PCP here in town that I referred him to per his request. He'll be discharged home in a stable condition. He will meet with the asthma educator prior to discharge. Patient Condition at Discharge: Fair Plan - Discharge Summary Discharge Rx Participant: No New Discharge Prescriptions: New metFORMIN HCL [Glucophage] 500 mg PO BID #60 tab glipiZIDE [Glucotrol] 5 mg PO AC-BID #60 tab Clindamycin [Cleocin] 450 mg PO Q6H #20 cap Continue Acetaminophen Tab [Tylenol] 1,000 mg PO Q6HR PRN PRN Reason: Pain Discontinued Amoxic-Pot Clav 875-125Mg [Augmentin 875-125] 1 tab PO Q12HR Discharge Medication List Acetaminophen Tab [Tylenol] 1,000 mg PO Q6HR PRN 11/11/20 [History] Clindamycin [Cleocin] 450 mg PO Q6H #20 cap 11/13/20 [Rx] glipiZIDE [Glucotrol] 5 mg PO AC-BID #60 tab 11/13/20 [Rx] metFORMIN HCL [Glucophage] 500 mg PO BID #60 tab 11/13/20 [Rx] Follow up Appointment(s)/Referral(s): Nicolle Yan MD [STAFF PHYSICIAN] - 11/19/20 Lou Maldonado MD [STAFF PHYSICIAN] - As Needed (call to schedule colonoscopy in 6-8 weeks) Billy Irvin [STAFF PHYSICIAN] - 1 Week Discharge Disposition: HOME SELF-CARE
--- NOTE | 2020-11-13 14:43 | P.CONS ---
History of Present Illness - Reason for Consult Consult date: 11/13/20 History of Crohn's disease Requesting physician: Nicolle Yan - Chief Complaint Groin abscess - History of Present Illness Assessment 50-year-old -[place] male who presented to the emergency department from an outside facility with concern for an abscess to his left groin. Patient has a past medical history significant of Crohn's disease which is currently under control. He is newly diagnosed with diabetes. Gen. surgery was on consult and did an I&D on the abscess and consulted gastroenterology for patient to establish for his Crohn's disease. He underwent a pelvic CT that shows no free fluid in the pelvis, no pelvic mass, no inguinal hernia, no sign of bowel obstruction. There is a 3.7 cm umbilical hernia containing fat. There was a complex left groin mass consistent with an abscess with surrounding fat stranding. Patient denies any active disease with his Crohn's, he was diagnosed with colitis as a child in his middle school years and was seen by technician helper instrument through the [facility]. He states that in the he had active disease and was diagnosed with Crohn's, he had a bowel resection in 1997. He has had no active disease in over 10 years. He is not currently taking any medications for his Crohn's disease. His last colonoscopy he reports was greater than 5-10 years ago and showed no active disease. At one time he was treated with Asacol. States his bowel movements are normal, he has no bleeding, no abdominal pain, no nausea, no vomiting. Review of Systems REVIEW OF SYSTEMS: CARDIOPULMONARY: No chest pain or shortness of breath. Gastrointestinal: No abdominal pain. No nausea or vomiting. No hematemesis, coffee-ground emesis. No rectal bleeding, or melena. Normal bowel movements. GENITOURINARY: No dysuria or hematuria. MUSCULOSKELETAL: Reports normal range of motion., Joint pain. SKIN: No rashes. No jaundice. Left groin abscess. ENDOCRINE: No chills, fevers. No excessive weight gain or loss. No polydipsia or polyuria. PSYCHIATRIC: Unremarkable. NEUROLOGY: No change in mental status. Denies dizziness, headache. ENT: Vision unremarkable. CONSTITUTIONAL: No recent weight loss. No fever, chills, night sweats. Past Medical History Additional Past Medical History / Comment(s): chrons History of Any Multi-Drug Resistant Organisms: None Reported Additional Past Surgical History / Comment(s): colon surgery Past Psychological History: No Psychological Hx Reported Smoking Status: Never smoker Past Alcohol Use History: Occasional Past Drug Use History: None Reported Medications and Allergies Home Medications Medication Instructions Recorded Confirmed Type Acetaminophen Tab [Tylenol] 1,000 mg PO Q6HR PRN 11/11/20 11/11/20 History Clindamycin [Cleocin] 450 mg PO Q6H #20 cap 11/13/20 Rx glipiZIDE [Glucotrol] 5 mg PO AC-BID #60 tab 11/13/20 Rx metFORMIN HCL [Glucophage] 500 mg PO BID #60 tab 11/13/20 Rx Allergies Allergy/AdvReac Type Severity Reaction Status Date / Time Sulfa (Sulfonamide Allergy Rash/Hives Verified 11/11/20 13:05 Antibiotics) Physical Exam Vitals: Vital Signs Temp Pulse Resp BP BP Pulse Ox 11/13/20 08:54 20 11/13/20 06:43 97.7 F 74 20 158/99 161/100 100 11/13/20 01:59 98.1 F 78 16 136/89 99 11/12/20 20:00 98.1 F 84 17 147/92 97 11/12/20 14:27 97.8 F 88 16 141/91 97 Intake and Output 11/12/20 11/13/20 11/13/20 22:59 06:59 14:59 Intake Total 320 1080 480 Output Total 450 1700 400 Balance -130 -620 80 Intake: Intake, IV Titration 600 Amount Ampicillin-Sulbactam 3 gm 100 In Sodium Chloride 0.9% 100 ml @ 200 mls/hr IVPB Q8H TIESHA Rx#:[id number] Vancomycin 1,250 mg In 500 Sodium Chloride 0.9% 250 ml @ 125 mls/hr IVPB Q8HR @0200,1000,1800 TIESHA Rx#: [id number] Oral 320 480 480 Output: Urine 450 1700 400 Other: # Voids 1 # Bowel Movements 0 General appearance: The patient is alert, oriented, appears in no acute distress. HET: Head is normocephalic and atraumatic. Conjunctiva pink. Sclera anicteric. Neck: Supple without lymphadenopathy. Trachea midline. Heart: S1 S2. Regular rate and rhythm. Lungs: Clear to auscultation. Abdomen: Soft, diffuse tenderness, greatest in the epigastric region, nondistended with bowel sounds. No guarding or rigidity. Skin: No rashes. No jaundice. Left groin with incision with drain tube. Extremities: Normal skin color and turgor. No pedal edema. Neurological: No focal deficits. Alert and oriented 3.. Results CBC & Chem 7: 11/12/20 08:32 11/12/20 08:32 Labs: Abnormal Lab Results - Last 24 Hours (Table) 11/12/20 11/12/20 11/12/20 Range/Units 11:47 16:54 20:16 POC Glucose (mg/dL) 219 H 185 H 234 H (75-99) mg/dL 11/13/20 Range/Units 06:46 POC Glucose (mg/dL) 133 H (75-99) mg/dL Microbiology - Last 24 Hours (Table) 11/11/20 14:40 Gram Stain - Preliminary Groin Wound Culture - Preliminary Presumptive MRSA 11/11/20 14:40 Gram Stain - Preliminary Groin Wound Culture - Preliminary Presumptive MRSA 11/11/20 00:45 Blood Culture - Preliminary Blood No Growth after 48 hours 11/11/20 00:30 Blood Culture - Preliminary Blood No Growth after 48 hours Assessment and Plan (1) History of Crohn's disease Narrative/Plan: T1-year[age] male who presented to the emergency department 2 days ago with complaints of abscess to the left groin. He underwent I&D with general surgery. He has a past medical history that includes Crohn's disease, without any active disease currently. As a child in his middle school years he was diagnosed with colitis and was seen with the technician helper instrument at [facility]. In the he states he was diagnosed with Crohn's disease and in 1997 underwent a bowel resection. For a short period he was on steroids and Asacol. He had a couple repeat colonoscopies after his bowel resection and states he had no active disease. He has not had a colonoscopy in greater than 5-10 years, does not follow with any technician helper instrument. He states he has not had any problems with his Crohn disease. He denies any abdominal pain, constipation, diarrhea, rectal bleeding, nausea or vomiting. Plan will be for outpatient colonoscopy in 6-8 weeks, once groin abscess has healed. Current Visit: Yes Status: Acute Code(s): Z87.19 - PERSONAL HISTORY OF OTHER DISEASES OF THE DIGESTIVE SYSTEM SNOMED Code(s): 963606103272347 (2) Groin abscess Current Visit: Yes Status: Acute Code(s): L02.214 - CUTANEOUS ABSCESS OF GROIN SNOMED Code(s): 53881893 (3) Diabetes Current Visit: Yes Status: Acute Code(s): E11.9 - TYPE 2 DIABETES MELLITUS WITHOUT COMPLICATIONS SNOMED Code(s): 70009042 Plan: 1. Continue symptomatic and supportive care 2. Continue Ativan excess water 3. No plans for endoscopic evaluation at this time, discussed with patient he can call the office to set up an outpatient colonoscopy in 6-8 weeks once his groin abscess has healed and diabetes is under control, patient is agreeable to this plan. Thank you for this consultation, patient may be discharged home from a gastroenterology standpoint. Dr. Janessa Maldonado I agree with the dictator's note, documented as a scribe by Alba Dove.
[2020-11-13] MEDS ORDERED: VANCOMYCIN TROUGH DUE 1 EACH MISC MISCELLANE ONE (17:00)
--- NOTE | 2020-11-14 12:36 | P.PN ---
Progress Note - Text Progress Note Date: 11/13/20 REASON FOR FOLLOWUP: Left groin abscess INTERVAL HISTORY: Patient denies having any fever or any chills, patient pain to left foot is currently controlled no chest pain shortness with cough no nausea vomiting no abdominal pain no diarrhea PHYSICAL EXAMINATION: Blood pressure 120/50, pulse of 60 , temperature 98.2. He is 98% on room air. General description is an middle-age male lying in bed in no distress. Respiratory system: Unlabored breathing, clear to auscultation anteriorly. Heart S1, S2. Regular rate and rhythm. Abdomen soft. No tenderness. Groin incision is currently dressed no drainage of the dressing LABS: Cultures currently pending DIAGNOSTIC IMPRESSION AND PLAN: Patient with left groin abscess status post extensive debridement cultures are currently pending failing outpatient oral biotic therapy patient to continue with vancomycin while waiting for the culture finalized to determine his discharge antibiotics continue supportive care
== END 2020-11-13 14:27 | disposition home or self-care (01) ==
LOC: SUPCPDRO 23:15 → EC 23:15 → 1SOBS 11-11 01:04 → 6NMEDSUR 11-11 03:57
PROVIDERS: ADMIT Internal Medicine; ATTEND Internal Medicine
DX: L02.214 Cutaneous abscess of groin (principal); L02.211 Cutaneous abscess of abdominal wall; L03.314 Cellulitis of groin; E11.65 Type 2 diabetes mellitus with hyperglycemia; K50.90 Crohn's disease, unspecified, without complications; E87.2 Acidosis; N43.3 Hydrocele, unspecified; N43.41 Spermatocele of epididymis, single; K42.9 Umbilical hernia without obstruction or gangrene; B95.62 Methicillin resistant Staphylococcus aureus infection as the cause of diseases classified elsewhere; Z86.14 Personal history of Methicillin resistant Staphylococcus aureus infection; Z87.828 Personal history of other (healed) physical injury and trauma; Z88.2 Allergy status to sulfonamides; Z90.49 Acquired absence of other specified parts of digestive tract
CPT/HCPCS: 96361; 96365; 96366; 96367; 96372; 96375; 99285; 36415; 93005; 88304; 80053 ×2; 82550; 83605; 83735 ×2; 84100 ×2; 84484; 85025 ×2; 80202; 85610; 85730; 87040; 87070; 87205; 87075; 87077; 87186; 83036; 72193; 10061; 11043; G0378 ×4; J2250; J3370 ×3; J2270; J2405; J2001; J3010; J0295 ×3; J1885; J0330; J2704; C9113 ×3; Q9967; J1644 ×3

== ENCOUNTER 2021-08-26 18:20 | Emergency (ER) | payer OTHER ==
[2021-08-26 19:06] VITALS: RESP 18
[2021-08-27] MEDS ORDERED: SODIUM CHLORIDE 0.9% 1,000 ML IV STA (03:26)
--- NOTE | 2021-08-27 03:28 | ED ---
Abdominal Pain HPI - General Chief Complaint: Abdominal Pain Stated Complaint: Post-op complication Source: patient Mode of arrival: ambulatory Limitations: no limitations - History of Present Illness Initial Comments: Patient is a pleasant 50-year-old gentleman who presents the ER today for evaluation of a few weeks of intermittent right upper quadrant abdominal pain. Patient has extensive surgical history most notable for a small bowel resection and partial colectomy done in the mid s to treat his Crohn's disease. Patient reports that since that time he has had no complications of Crohn's disease. He reports that for about the past month he's been having a pulling sensation in his upper abdomen no associated nausea, vomiting or change in bowel or bladder habits. Patient reports that he feels like maybe there is some scar tissue that tugging in side of his abdomen, he is not having any fevers or chills. Pain seems to be improved when he takes ibuprofen and worsened with certain movements or activity. - Related Data Home Medications Medication Instructions Recorded Confirmed Acetaminophen Tab [Tylenol] 1,000 mg PO Q6HR PRN 11/11/20 11/11/20 Previous Rx's Medication Instructions Recorded Clindamycin [Cleocin] 450 mg PO Q6H #20 cap 11/13/20 glipiZIDE [Glucotrol] 5 mg PO AC-BID #60 tab 11/13/20 metFORMIN HCL [Glucophage] 500 mg PO BID #60 tab 11/13/20 Allergies Allergy/AdvReac Type Severity Reaction Status Date / Time Sulfa (Sulfonamide Allergy Rash/Hives Verified 11/11/20 13:05 Antibiotics) Review of Systems ROS Statement: Those systems with pertinent positive or pertinent negative responses have been documented in the HPI. ROS Other: All systems not noted in ROS Statement are negative. Past Medical History Additional Past Medical History / Comment(s): chrons History of Any Multi-Drug Resistant Organisms: MRSA Date of last positivie culture/infection: 11/11/20 MDRO Source:: MRSA GROIN Additional Past Surgical History / Comment(s): colon surgery, testicular sx Past Psychological History: No Psychological Hx Reported Smoking Status: Never smoker Past Alcohol Use History: Occasional Past Drug Use History: None Reported General Exam - General Exam Comments Initial Comments: Physical Exam GENERAL: Patient is well-developed and well-nourished. Patient is nontoxic and well-hydrated and is in no distress. HENT: Normocephalic, Atraumatic. EYES: PERRL, EOMI PULMONARY: Unlabored respirations. No audible rales rhonchi or wheezing was noted. CARDIOVASCULAR: There is a regular rate and rhythm without any murmurs gallops or rubs. ABDOMEN: Soft and nontender with normal bowel sounds. Large scars in mid abdomen Tenderness to palpation at superior edge of scar SKIN: Skin is clear with no lesions or rashes and otherwise unremarkable. : Deferred NEUROLOGIC: Patient is alert and oriented x3. Moving all extremities spontaneously MUSCULOSKELETAL: Normal extremities with adequate strength and full range of motion. No lower extremity swelling or edema. No calf tenderness. PSYCHIATRIC: Normal psychiatric evaluation. Limitations: no limitations Course Vital Signs 08/26/21 08/27/21 18:59 02:06 Temperature 98.6 F 97.2 F L Pulse Rate 75 69 Respiratory 18 18 Rate Blood Pressure 185/100 159/103 O2 Sat by Pulse 100 98 Oximetry Medical Decision Making - Lab Data Result diagrams: 08/27/21 03:26 08/27/21 04:30 Lab Results 08/27/21 08/27/21 Range/Units 03:26 04:30 WBC 5.7 (3.8-10.6) k/uL RBC 5.53 (4.30-5.90) m/uL Hgb 15.9 (13.0-17.5) gm/dL Hct 49.0 (39.0-53.0) % MCV 88.6 (80.0-100.0) fL MCH 28.8 (25.0-35.0) pg MCHC 32.5 (31.0-37.0) g/dL RDW 13.0 (11.5-15.5) % Plt Count 336 (150-450) k/uL MPV 6.4 Neutrophils % 41 % Lymphocytes % 44 % Monocytes % 6 % Eosinophils % 6 % Basophils % 2 % Neutrophils # 2.3 (1.3-7.7) k/uL Lymphocytes # 2.5 (1.0-4.8) k/uL Monocytes # 0.3 (0-1.0) k/uL Eosinophils # 0.3 (0-0.7) k/uL Basophils # 0.1 (0-0.2) k/uL Sodium 140 (137-145) mmol/L Potassium 5.1 (3.5-5.1) mmol/L Chloride 106 (98-107) mmol/L Carbon Dioxide 26 (22-30) mmol/L Anion Gap 8 mmol/L BUN 14 (9-20) mg/dL Creatinine 0.83 (0.66-1.25) mg/dL Est GFR (CKD-EPI)AfAm >90 (>60 ml/min/1.73 sqM) Est GFR (CKD-EPI)NonAf >90 (>60 ml/min/1.73 sqM) Glucose 111 H (74-99) mg/dL Calcium 9.2 (8.4-10.2) mg/dL Total Bilirubin 1.0 (0.2-1.3) mg/dL AST 54 (17-59) U/L ALT 42 (4-49) U/L Alkaline Phosphatase 97 (38-126) U/L Total Protein 8.3 H (6.3-8.2) g/dL Albumin 4.1 (3.5-5.0) g/dL Lipase 137 (23-300) U/L Disposition Clinical Impression: Abdominal wall hematoma Disposition: HOME SELF-CARE Condition: Stable Additional Instructions: It appears you have a fluid collection in the tissue near your scar, likely a bruise, I recommend you continue the motrin/tylenol and apply ice packs as needed Return to the emergency department if you develop any worsening pain, skin color changes or signs of infection, fever or any new or concerning symptoms Is patient prescribed a controlled substance at d/c from ED?: No Referrals: Billy Irvin [Primary Care Provider] - 1-2 days
[2021-08-27 04:38] LABS: Basophils # (A) 0.1 k/uL (0-0.2); Basophils % (A) 2 %; Eosinophils # (A) 0.3 k/uL (0-0.7); Eosinophils % (A) 6 %; HGB 15.9 gm/dL (13.0-17.5); Lymphocytes # (A) 2.5 k/uL (1.0-4.8); Lymphocytes % (A) 44 %; MCH 28.8 pg (25.0-35.0); MCHC 32.5 g/dL (31.0-37.0); MCV 88.6 fL (80.0-100.0); Mean Platelet Volume 6.4; Monocytes # (A) 0.3 k/uL (0-1.0); Monocytes % (A) 6 %; Neutrophils # (A) 2.3 k/uL (1.3-7.7); Neutrophils % (A) 41 %; Platelet Count 336 k/uL (150-450); RBC 5.53 m/uL (4.30-5.90); WBC 5.7 k/uL (3.8-10.6)
[2021-08-27 04:51] LABS: ALT 42 U/L (4-49); AST 54 U/L (17-59); African American GFR (CKD) >90 (>60 ml/min/1.73 sqM); Albumin 4.1 g/dL (3.5-5.0); Alkaline Phosphatase 97 U/L (38-126); Anion Gap 8 mmol/L; Blood Urea Nitrogen 14 mg/dL (9-20); Calcium 9.2 mg/dL (8.4-10.2); Carbon Dioxide 26 mmol/L (22-30); Chloride 106 mmol/L (98-107); Glucose 111 mg/dL (74-99); Lipase 137 U/L (23-300); Non-African American GFR(CKD) >90 (>60 ml/min/1.73 sqM); Potassium 5.1 mmol/L (3.5-5.1); Sodium 140 mmol/L (137-145); Total Protein 8.3 g/dL (6.3-8.2)
--- NOTE | 2021-08-27 06:02 | CT ---
EXAMINATION TYPE: CT abdomen pelvis w con DATE OF EXAM: 08/27/2021 COMPARISON: CT scan of the pelvis 11/11/2020 HISTORY: abd pain after testicular sx x 2weeks ago CT DLP: mGycm Automated exposure control for dose reduction was used. CONTRAST: Performed with IV Contrast, patient injected with 100 mL of Isovue 300. Images obtained from the diaphragm to the floor the pelvis with IV contrast. The lung bases are clear. No pleural effusion. Heart size is normal. No pericardial effusion. Mild fa tty infiltration of the liver is present. Spleen is intact. There is no pancreatic mass. Stomach is i ntact. Gallbladder appears normal. The bile duct are not dilated. There is no adrenal mass. Kidneys have normal size. There is no hydronephrosis. Ureters are not dilat ed. There is no retroperitoneal adenopathy. There is normal contrast opacification of the kidneys. De layed images show normal renal excretion. There is no retroperitoneal adenopathy. There is no free fl uid in the pelvis. Bladder distends smoothly. There is some increased fluid on the right side of the scrotum compared to the left consistent with a hydrocele. There is no inguinal hernia. There is a 4 c m fat-containing umbilical hernia. There is some subcutaneous fluid in the anterior upper abdomen valente t measures 6 x 3 cm. The lumbar vertebrae have normal alignment. Disc spaces are fairly normal. No compression fracture Appendix not seen. No sign of thickened appendix. IMPRESSION: Right side hydrocele is significantly smaller than previous exam. There is clearing of the subcutaneo us fluid in the left-sided pubic region compared to the old exam. There is mid abdominal subcutaneous fluid on the right side of midline which is new compared to the old exam and could be postsurgical c hanges of hematoma or seroma.
[2021-08-27] MEDS ORDERED: IBUPROFEN 600 MG TAB PO STA (06:39)
[2021-08-27 07:06] VITALS: BP 155/95; PULSE 76; TEMP 97.2
== END 2021-08-27 06:50 | disposition home or self-care (01) ==
LOC: EC 18:20
DX: L76.32 Postprocedural hematoma of skin and subcutaneous tissue following other procedure (principal); Z88.2 Allergy status to sulfonamides; Z93.3 Colostomy status
CPT/HCPCS: 36415; 80053; 83690; 85025; 74177; 99284; 96360; Q9967

== ENCOUNTER → 2023-04-09 | Outpatient (CLI) | payer OTHER ==
[2023-04-09 18:36] LABS: BUN/Creat Ratio 15.18 Ratio (12.00-20.00); Blood Urea Nitrogen 16.7 mg/dL (9.0-27.0); Calcium 9.7 mg/dL (8.7-10.3); Carbon Dioxide 23.2 mmol/L (21.6-31.8); Chloride 101 mmol/L (96-109); Glucose 259 mg/dL (70-110); Potassium 3.4 mmol/L (3.5-5.5); Sodium 139 mmol/L (135-145)
== END | disposition home or self-care (01) ==
LOC: LABWHC1 11:06
PROVIDERS: ATTEND Family Medicine
DX: I10 Essential (primary) hypertension (principal)
CPT/HCPCS: 36415; 80048